=== PATIENT | male | born 1975 | race Caucasian/White ===

== ENCOUNTER 2021-06-14 13:54 | Outpatient (CLI) | payer MEDICARE, SELFPAY ==
--- NOTE | ~2021-06-14 | US_ITS ---
EXAMINATION: US arterial duplex [facility] EXAM DATE: 06/14/2021 15:10 INDICATION: pain in lower limb. TECHNIQUE: Multiple grayscale and Doppler images of the bilateral lower extremity arterial duplex we re obtained (by a technologist who performed the scan) and subsequently reviewed. There is no prior study for comparison. FINDINGS: Velocities reported in cm/sec. Right CONCRETER 128, profundus 70, SFA 117, popliteal 87, posterior tibial 61, dorsalis pedis 112. Left CONCRETER 95, profunda 67, SFA 93, popliteal 61, CHEF HEAD 59, DTPA 101. Velocities above are normal. Normal triphasic high resistance waveforms throughout the arterial syste m. There are mild scattered foci of arteriosclerosis without visual or Doppler evidence of stenosis. IMPRESSION: Mild scattered foci lower extremity arterial sclerosis without evidence of significant st enosis. Reviewed, dictated and finalized at location A. IMPRESSION: Mild scattered foci lower extremity arterial sclerosis without evid ence of significant stenosis.
== END 2021-06-14 13:55 | disposition home or self-care (01) ==
LOC: ANHIMG 14:00
PROVIDERS: PCP Internal Medicine; Visit Provider Internal Medicine
DX: M79.662 Pain in left lower leg (principal); M79.661 Pain in right lower leg; I73.9 Peripheral vascular disease, unspecified
CPT/HCPCS: 93925

== ENCOUNTER 2025-01-11 13:27 | Emergency (ER) | payer OTHER, MEDICARE, SELFPAY ==
[2025-01-11 13:32] VITALS: BP 186/84; PULSE 81; RESP 34; TEMP 36.9; O2SAT 100
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
[2025-01-11 14:31] VITALS: O2SAT 99
--- NOTE | 2025-01-11 14:32 | PC.NURSE ---
Pt refusing Dilaudid states I don't want to be an addict. RN informed pt one dose will not cause an addiction. RN ask pt if he had history of substance abuse, pt denies. Pt then tells RN I find pain arousing . Dr. Downs informed
[2025-01-11 14:35] VITALS: BP 186/82; PULSE 54; RESP 16; O2SAT 99
[2025-01-11 14:36] LABS: Basophils Percent Auto 0.4 % (0.2-1.2); Eosinophils Absolute Auto 0.2 K/mm3 (0-0.3); Eosinophils Percent Auto 1.7 % (0-4.4); Hematocrit 41.6 % (42.0-52.0); Hemoglobin 13.7 g/dL (14.0-18.0); Immature Granulocyte Absolute 0.04 K/mm3 (0.00-0.031); Immature Granulocyte Percent A 0.4 % (0-0.5); Lymphocytes Absolute Auto 1.35 K/mm3 (0.9-3.2); Lymphocytes Percent Auto 13.6 % (18.3-44.2); Mean Corpuscular HGB Conc 32.9 g/dl (32-36); Mean Corpuscular Hemoglobin 30.2 pg (26-34); Mean Corpuscular Volume 91.6 fl (80-100); Mean Platelet Volume 8.9 fl (7.4-10.4); Monocytes Absolute Auto 0.7 K/mm3 (0.1-0.6); Monocytes Percent Auto 6.7 % (2.6-8.5); Neutrophils Absolute Auto 7.7 K/mm3 (1.3-6.7); Neutrophils Percent Auto 77.2 % (45.5-73.1); Platelet Count Result 336 k/mm3 (150-375); Red Blood Count 4.54 M/mm3 (4.6-6.20); Red Cell Distribution Width 12.7 % (11.5-14.5)
[2025-01-11 14:47] LABS: Prothrombin Time 13.8 Seconds (11.1-14.7)
[2025-01-11 14:48] LABS: Partial Thromboplastin Time 23.4 Seconds (22.3-36.8)
[2025-01-11 14:52] LABS: Alanine Aminotransferase 36 U/L (6-50); Albumin Level 4.4 g/dL (3.5-5.1); Alkaline Phosphatase 102 U/L (38-126); Anion Gap 15 mmol/L (4-12); Aspartate Amino Transferase 40 U/L (17-59); Bilirubin,Total 0.6 mg/dL (0.2-1.3); Blood Urea Nitrogen 20 mg/dL (9-20); Calcium 9.3 mg/dL (8.4-10.2); Carbon Dioxide 19 mmol/L (22-30); Chloride 100 mmol/L (98-107); Estimated CRCL calculation 73 ml/min; Estimated Glomerular Filt Rate > 60; Glucose 313 mg/dL (65-110); Potassium 4.3 mmol/L (3.4-5.0); Sodium 134 mmol/L (137-145)
--- OUTSIDE RECORDS SUMMARY | 2025-01-11 15:14 | XMS_ITS | Clinical Summary ---
Author Organization [facility] Address [address] [place] [address] Care Team Providers Care Corporate Sales Trainer Name Role Phone Unavailable Primary Care Provider Unavailabl e Source Comments [facility],non-owned Affiliates and Associated Physician Practices is amultiple site organization consisting of ambulatory clinics and hospital sitesin [place], [place], [place] and [place]. This disclosure is being madepursuant to the Care Everywhere program and may not contain all information available regarding this patient. Last updated 18.[facility] Allergies Active Allergy Reactions Criticality Noted Date Comments Penicillins 05/20/2012 Medications * Be aware that medications may not be up to date on this document. Alwaysverify current medications with the patient. insulin aspart (NOVOLOG FLEXPEN) injection Inject subcutaneously 3 times daily before meals. Sliding scale Active DULoxetine (CYMBALTA) 60 MG capsule Take 60 mg by mouth once daily. Active losartan (COZAAR) 50 MG tablet Take 1 Tab by mouth once daily. 30 Tab 6 05/20/20 12 Active blood glucose (FREESTYLE LITE STRIPS) test stripIndications :Type I (juvenile type) diabetes mellitus without mention of complication, not stated as uncontrolled (HCC) Test 4 times/daily;with meals and bedtime.Include lancets. Ship glucose monitor with first package. 360 Strip 3 05/26/20 12 Active rosuvastatin (CRESTOR) 10 MG tablet Take 10 mg by mouth once daily. 06/03/20 12 Active insulin glargine (LANTUS SOLOSTAR PEN) injection Use as directed: inject 40 units SQ daily 4 Each 3 09/17/19 13 Active Insulin Pen Needle (BD PEN NEEDLE MATTIE U/F) 32G X 4 MM MISC Use 1 Device 4 times daily. 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 Retinopathy: S/p bilat ret surgery and vitrectomy: Last surgery 2000 Type 1 diabetes mellitus wit h established diabetic nephropathy 05/20/2012 Diabetic polyneuropathy 05/20/2012 Overview (07/24/2015): Hypercholesteremia 05/20/2012 Type 1 diabetes, controlled, with retinopathy Impotence due to erectile dysfunction 05/20/2012 Family History Medical History Relation Name Comments Diabetes Maternal Grandmother Relation Name Status Comments Maternal Grandmother Social History Tobacco Use Types Packs/Day Years Used Date Smoking Tobacco: Former Alcohol Use Standard Drinks/Week Comments No 0 (1 standard drink = 0.6 oz pur e alcohol) Sex and Gender Information Value Date Recorded Sex Assigned at Not on file 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 Gender Identity Not on file Sexual Orientation Not on file Last Filed Vital Signs Vital Sign Reading Time Taken Comments Blood Pressure 130/90 05/20/2012 11:55 AM CDT Pulse 81 05/20/2012 11:55 AM CDT Temperature - - Respiratory Rate 16 05/20/2012 11:5 5 AM CDT Oxygen Saturation - - Inhaled Oxygen Concentration - - Weight 88.8 kg (195 lb 12.8 oz) 012 11:55 AM CDT Height 175.3 cm (5' 9 ) 05/20/2012 11:5 5 AM CDT Body Mass Index 28.91 05/20/2012 11:55 AM CDT Plan of Treatment Health Maintenance Due Date Last Done Comments COLOGUARD (AGES 45-75) - COL ON CA SCREENING 1975 COLON MONITORING 1975 COLONOSCOPY - COLON CA SCREENING 1975 CT COLONOGRAPHY - COLON CA SCREENING 1975 Colorectal Cancer Screening 1975 FIT - COLON CA SCREENING 1975 FLEX SIG - COLON CA SCREENING 1975 HIV SCREENING 1990 HEPATITIS C SCREENING 09/11/1993 DIABETES-SERUM CREATININE 1993 DTAP/TDAP/TD VACCINES (1 - Tdap) 1994 HEPATITIS B VACCINE (1 of 3 - 19+ 3-dose series) 1994 DIABETES-FOOT EXAM WITH MONOFILAMENT 08/04/2019 DIABETES-HGB A1C 08/04/2019 COVID-19 VACCINE (1 - 2023-2 5 season) 2024 DEPRESSION SCREENING 2024 DIABETES - URINE PROTEIN SCREENING 2024 INFLUENZA VACCINE (Season Ended) 2025 ZOSTER VACCINE (1 of 2) 2025 HIB VACCINE Aged Out No longer eligi ble based on patient's age to complete this topic HPV VACCINE Aged Out No longer eligi ble based on patient's age to complete this topic MENINGOCOCCAL (Group B) VACC INE SHARED DECISION-MAKING Aged Out No longer eligibl e based on patient's age to complete this topic MENINGOCOCCAL GROUPS A/C/Y/W VACCINE Aged Out No longer eligible b ased on patient's age to complete this topic Insurance MEDICARE
--- OUTSIDE RECORDS SUMMARY | 2025-01-11 15:14 | XMS_ITS | CONTINUITY OF CARE DOCUMENT ---
Author Name johanny orlando Address Unknown Organization [facility] Address [address] [place] [address] Phone [phone] Care Team Providers Care Felt Coverer Name Role Phone Shahriar Smith MD Unavailable Robert Meek MD Unavailable Robert Meek MD Unavailable [phone] INSURANCE PROVIDERS Payer name Policy type / Coverage type [place]rick red green party ID UHC MEDICARE COMPLETE HMO Other [id number]
--- NOTE | 2025-01-11 15:54 | PC.NURSE ---
This RN wheels patient back to an ER room to be seen by a provider and pt refuses to get into the stretcher and put a gown on. pt states that they can only kneel on ground or lay in position on the ground to feel okay. this RN notifies life skills instructor and primary RN of this.
--- NOTE | 2025-01-11 16:10 | PC.NURSE ---
1540 pt refusing Tetanus. States has had in the last [address] Downs informed
--- OUTSIDE RECORDS SUMMARY | 2025-01-11 16:54 | XMS_ITS | Clinical Summary ---
Author Organization [facility] Address [address] [place] [address] Care Team Providers Care Streetcar Motorman Name Role Phone Unavailable Primary Care Provider Unavailabl e Source Comments [facility],non-owned Affiliates and Associated Physician Practices is amultiple site organization consisting of ambulatory clinics and hospital sitesin [place], [place], [place] and [place]. This disclosure is being madepursuant to the Care Everywhere program and may not contain all information available regarding this patient. 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
--- OUTSIDE RECORDS SUMMARY | 2025-01-11 16:54 | XMS_ITS | CONTINUITY OF CARE DOCUMENT ---
Author Name johanny orlando Address Unknown Organization [facility] Address [address] [place] [address] Phone [phone] Care Team Providers Care Assembly Line Inspector Name Role Phone Shahriar Smith MD Unavailable [phone] Robert Meek MD Unavailable Robert Meek MD Unavailable [phone] INSURANCE PROVIDERS Payer name Policy type / Coverage type [place] red republican ID UHC MEDICARE COMPLETE HMO Other [id number]
--- NOTE | 2025-01-29 11:38 | PC.NURSE ---
LATE ENTRY This note is being entered to document information to the patient's record. The following information was omitted on [01/11/25], by [Olivia Tovar RN]. Antibiotic ointment and sterile gauze applied to 2nd & 3rd digits on left hand.
== END 2025-01-11 16:01 | disposition home or self-care (01) ==
PROVIDERS: Emergency Provider Emergency Medicine; PCP Internal Medicine
DX: T23.632A Corrosion of second degree of multiple left fingers (nail), not including thumb, initial encounter (principal); T32.0 Corrosions involving less than 10% of body surface; T33.532A Superficial frostbite of left finger(s), initial encounter; T59.891A Toxic effect of other specified gases, fumes and vapors, accidental (unintentional), initial encounter; Z23 Encounter for immunization; E11.9 Type 2 diabetes mellitus without complications; N28.9 Disorder of kidney and ureter, unspecified; M10.9 Gout, unspecified; H26.9 Unspecified cataract; Z79.4 Long term (current) use of insulin; Z79.899 Other long term (current) drug therapy; W93.8XXA Exposure to other excessive cold of man-made origin, initial encounter
CPT/HCPCS: 16000; 16020; 36415; 80053; 85025; 85610; 85730; 90471; 90715; 99283